=== PATIENT | male | born 1990 | race Caucasian/White ===

== ENCOUNTER 2025-07-09 11:35 | Emergency (ER) | payer MEDICAID ==
[~2025-07-09] VITALS: Ht 177.8 cm; Wt 72.7 kg
[2025-07-09 11:41] VITALS: TEMP 97.8
[2025-07-09 13:50] LABS: CREATININE 0.99 MG/DL (0.60-1.10); MEAN PLATELET VOLUME 7.3 FL (7.4-10.4); RED CELL DISTRIBUTION WIDTH 14.6 % (11.5-14.5); TOTAL CARBON DIOXIDE 29.9 MMOL/L (24-32); eCRCL 108 ML/MIN; eGFR 87 ML/MIN
[2025-07-09 13:54] LABS: APTT 26 SECONDS (22-32); INR 1.0 INR
--- NOTE | 2025-07-09 17:56 | Physician Documentation ---
History of Present Illness ~ Chief Complaint: Bloody Emesis Stated Complaint: SPITTING BLOOD Time Seen by MD: 13:13 OK to notify your PCP?: Yes Source: patient Mode of Arrival: POV, Ambulatory HPI 34-year-old male patient who is a current smoker (a pack a day) came to the emergency room because he spitting up speck of blood at times. He said he has been under a lot of stress and also some headache from that stress. He has no vomiting of blood or coffee-ground stuff. He had also does not notice any bleeding per rectum or black stool per rectum. He has drink alcohol once a month. The patient denies chest pain abdominal pain and shortness of breath. Medication Reconciliation Allergies: Coded Allergies: No Known Allergies (Unverified , 07/09/25) Scheduled Famotidine (Famotidine), 1 TAB PO Q12H Scheduled PRN albuterol inhaler (Pro-Air Inhaler), 2 PUFFS INH Q4HPRN PRN for wheezing Review of Systems ROS As stated above in the HPI, otherwise all systems are reviewed and negative. Physical Exam Vital Signs: Temperature: 97.8, Source: Temporal, Heart Rate: 65, Respiratory Rate: 18, BP: 117/81, Pulse Oximetry: 98, Weight: 72.730 Oxygen Flow Rate: 0 Physical Exam Vital signs reviewed and they are well within normal range. Const: Not in acute cardiopulmonary distress Head: Atraumatic Eyes: Normal Conjunctiva ENT: Normal External Ears, Nose and Mouth. Moist mucous membrane Neck: Full range of motion. No meningismus Resp: Prolonged expiratory phase of breathing bilaterally. Normal work of breat low Cardio: Regular rate and rhythm, no murmurs. Skin well perfused Abd: Soft, non-tender, non-distended. Normal bowel sounds. No rebound or guarding Skin: No petechiae or rashes. Warm and dry Back: No midline or flank tenderness Ext: No cyanosis, or edema Neuro: Awake and alert Psych: Normal Mood and Affect Progress Results/Orders Results/Orders Orders - FOUZIA OSBORN MD Saline Lock (07/09/25 13:13) Completed Orders - FOUZIA OSBORN MD Cbc/Diff (07/09/25 13:13) BMP (07/09/25 13:13) PTT (07/09/25 13:13) Pt Inr (07/09/25 13:13) Type And Screen (07/09/25 13:13) Vital Signs 07/09/25 07/09/25 07/09/25 07/09/25 11:41 13:08 13:11 14:29 Temp 97.8 Pulse 66 68 64 Resp 18 16 16 18 B/P (MAP) 136/83 121/75 (90) 117/78 (91) Pulse Ox 100 98 98 O2 Flow Rate 0 0 07/09/25 07/09/25 16:43 18:17 Pulse 65 73 Resp 18 16 B/P (MAP) 117/81 (93) 108/72 Pulse Ox 98 97 O2 Flow Rate 0 Laboratory Tests Test 07/09/25 13:24 White Blood Count 8.1 Red Blood Count 4.26 L Hemoglobin 13.0 L Hematocrit 38.6 L Mean Corpuscular Volume 90.8 Mean Corpuscular Hemoglobin 30.4 Mean Corpuscular Hemoglobin Concent 33.5 Red Cell Distribution Width 14.6 H Platelet Count 392 Mean Platelet Volume 7.3 L Neutrophils (%) (Auto) 64.0 Lymphocytes (%) (Auto) 24.7 Monocytes (%) (Auto) 8.1 Eosinophils (%) (Auto) 2.3 Basophils (%) (Auto) 0.9 Neutrophils # (Auto) 5.2 Lymphocytes # (Auto) 2.0 Monocytes # (Auto) 0.7 Eosinophils # (Auto) 0.2 Basophils # (Auto) 0.1 CBC Comment Prothrombin Time 10.2 INR International Normalized Ratio 1.0 Activated Partial Thromboplast Time 26 Coagulation Comments Sodium Level 144 Potassium Level 4.4 Chloride Level 108 H Carbon Dioxide Level 29.9 Anion Gap 6 L Blood Urea Nitrogen 10 Creatinine 0.99 Estimated GFR/1.73 m2 87 BUN/Creatinine Ratio 10.1 Glucose Level 89 Calcium Level 8.3 L Albumin 3.4 Chemistry Comments Medical Decision Making Additional information obtaine: other Findings During the physical examination, the findings suggestive of acute life- threatening condition such as JVD, tracheal deviation, acidotic breathing, noisy stridorous breath sounds, pulses paradoxus, muffled heart sounds, unequal breath sounds, abdominal rigidity and rebound tenderness, focal neurological deficits, cool clammy skin, severe hypotension, severe tachycardia or bradycardia are ab sent. Physical examination is unremarkable except for some signs of COPD. His CBC essentially normal and his BMP is also normal with normal BUN and creatinine ratio. Patient is reassured and discharged from the emergency room with aftercare instructions. DISCLAIMER Inadvertent spelling and grammatical errors,inadvertent insurance follow up specialist errors,syntax errors, grammatical errors, and spelling errors are likely due to EMR/dictation software use and do not reflect on the overall quality of patient care. Note that the electronic time recorded on this note does not necessarily reflect the actual time of the patient encounter. Diff Dx GI Bleed:Consideration: Include: AE fistula Diff Dx Pain:Considerations: Include: AAA Diff Dx N/V/D:Considerations: Include: Appendicitis Diff Dx Rectal:Considerations: Include: Fissure Departure Disposition: HOME / SELF CARE / HOMELESS Impression: Primary Impression: Encounter for medical screening examination Additional Impressions: Tobacco dependency Gastritis Condition: Stable Discharge Instructions: Health Risks of Smoking, Medical Screening Exam Additional Instructions: Thank you for coming to our Emergency Department today. Please cut down smoking. Do regular physical activities. Deep slow breathing when you are really stress out. Please ask your nurse or provider if you have questions about your care today and do not leave until all your questions have been answered. Please use any medications given as directed and follow-up with your doctor (or the doctor you were referred to) in the next 1-3 days. Your primary care doctor can help to coordinate outpatient specialty care and provide authorization for specialty referral as needed. If you do not have a primary care doctor you may follow up at a [facility]. You may also use motrin and tylenol as needed for fever and/or pain unless instructed otherwise by your provider or nurse. Indications for more urgent follow-up have been discussed, but you may return to the Emergency Department at ANY time for any worrisome or worsening symptoms. County Facilities: [facility] Facilities: [facility]: Main [place] Address:[address] [place] [address] [facility]: [place] Address:[facility] [place] [address] [facility]: Telemedicine Address:[address] [place] [address] [facility] Address:[address] [place] [id number] Registration Billing Pharmacy Referrals [facility] Address:[address] [place] [address] Referrals: NO PRIMARY CARE PROVIDER (PCP) Prescriptions albuterol inhaler (Pro-Air Inhaler) 8.5 Gm Inhaler 2 PUFFS INH Q4HPRN PRN for wheezing for 30 Days, #18 GM Prov: FOUZIA OSBORN MD 07/09/25 Famotidine (Famotidine) 20 Mg Tablet 1 TAB PO Q12H for 30 Days, #60 TAB 0 Refills Prov: FOUZIA OSBORN MD 07/09/25 Signature Scribe Signature: x Attestation: FOUZIA Cobian MD Jul 09, 2025 17:56
[2025-07-09] MEDS ORDERED: ALBU8HFA INH (17:57)
[2025-07-09] MEDS ORDERED: FAMO20TA8 PO (17:57)
[2025-07-09 18:17] VITALS: BP 108/72; PULSE 73; RESP 16; O2SAT 97
== END 2025-07-09 18:18 | disposition home or self-care (01) ==
LOC: ER 11:36
DX: Z00.00 Encounter for general adult medical examination without abnormal findings (principal); K29.70 Gastritis, unspecified, without bleeding; F17.200 Nicotine dependence, unspecified, uncomplicated; Z79.899 Other long term (current) drug therapy
CPT/HCPCS: 36415; 80048; 85025; 85610; 85730; 86885; 86900; 86901; 99285